=== PATIENT | female | born 1980 ===

== ENCOUNTER 2017-08-31 01:30 | Emergency (ER) | payer MEDICAID ==
[2017-08-31 01:37] VITALS: BMI 23.4
[2017-08-31 01:41] VITALS: TEMP 98.2
--- NOTE | 2017-08-31 01:52 | ED PDOC ---
Arrival/HPI - General Chief Complaint: Dizziness/Lightheaded Time Seen by Provider: 08/31/17 01:31 Historian: Patient, EMS - History of Present Illness Narrative History of Present Illness (Text): 08/31/17 01:48 Kim Arias is a 37 year old female who presents to the Emergency department complaining of dizziness. Patient states she woke up tonight with dizziness, described as room-spinning, with associated nausea and generalized weakness. Patient notes dizziness is worsened with movement. Patient denies any fever, chills, chest pain, shortness of breath, vomiting, diarrhea, urinary symptoms, back pain, neck pain, headache, or any other complaints. Symptom Onset: Gradual Symptom Course: Unchanged Activities at Onset: Light Context: Home Past Medical History - Provider Review Nursing Documentation Reviewed: Yes - Psychiatric Hx Substance Use: No - Surgical History Hx Section: Yes - Anesthesia Hx Anesthesia: No Family/Social History - Physician Review Nursing Documentation Reviewed: Yes Family/Social History: Unknown Family HX Smoking Status: Never Smoked Hx Alcohol Use: No Hx Substance Use: No Allergies/Home Meds Allergies/Adverse Reactions: Allergies No Known Allergies Allergy (Unverified 08/31/17 01:39) Review of Systems - Physician Review All systems were reviewed & negative as marked: Yes - Review of Systems Constitutional: Other (+weakness). absent: Fevers Eyes: Normal ENT: Normal Respiratory: Normal. absent: SOB, Cough Cardiovascular: Normal. absent: Chest Pain Gastrointestinal: Nausea. absent: Abdominal Pain, Diarrhea, Vomiting Genitourinary Female: Normal. absent: Dysuria, Frequency, Hematuria, Urine Output Changes Musculoskeletal: Normal. absent: Back Pain, Neck Pain Skin: Normal. absent: Rash Neurological: Dizziness. absent: Headache Endocrine: Normal Hemo/Lymphatic: Normal Psychiatric: Normal Physical Exam Vital Signs Reviewed: Yes Vital Signs Temp Pulse Resp BP Pulse Ox 08/31/17 03:52 73 17 128/73 100 08/31/17 01:40 98.2 F 64 16 116/67 96 Temperature: Afebrile Blood Pressure: Normal Pulse: Regular Respiratory Rate: Normal Appearance: Positive for: Well-Appearing, Non-Toxic, Comfortable Pain Distress: None Mental Status: Positive for: Alert and Oriented X 3 - Systems Exam Head: Present: Atraumatic, Normocephalic Pupils: Present: PERRL Extroacular Muscles: Present: EOMI Conjunctiva: Present: Normal Ears: Present: Normal, NORMAL TM, Normal Canal. No: Erythema, TM Bulging, Fluid , TM Perf Mouth: Present: Moist Mucous Membranes Pharnyx: Present: Normal. No: ERYTHEMA, EXUDATE, TONSILS ENLARGED, Peritonsilar Swelling, Uvular Deviation, Muffled/Hoarse Voice, Strider, Soft Palate/Uvular Edema Nose (External): Present: Atraumatic Nose (Internal): Present: Normal Inspection Neck: Present: Normal Range of Motion. No: Meningeal Signs, MIDLINE TENDERNESS , Paraspinal Tenderness Respiratory/Chest: Present: Clear to Auscultation, Good Air Exchange. No: Respiratory Distress, Accessory Muscle Use Cardiovascular: Present: Regular Rate and Rhythm, Normal S1, S2. No: Murmurs Abdomen: Present: Normal Bowel Sounds. No: Tenderness, Distention, Peritoneal Signs Back: Present: Normal Inspection. No: CVA Tenderness, Midline Tenderness, Paraspinal Tenderness Upper Extremity: Present: Normal Inspection, Normal ROM, NORMAL PULSES, Neurovascularly Intact. No: Cyanosis, Edema Lower Extremity: Present: Normal Inspection, NORMAL PULSES, Normal ROM, Neurovascularly Intact. No: Edema Neurological: Present: GCS=15, CN II-XII Intact, Speech Normal, Motor Func Grossly Intact, Normal Sensory Function, Normal Cerebellar Funct, Memory Normal Skin: Present: Warm, Dry, Normal Color. No: Rashes Psychiatric: Present: Alert, Oriented x 3, Normal Insight, Normal Concentration Medical Decision Making ED Course and Treatment: 08/31/17 01:48 Impression: 37 year old female complaining of dizziness, nausea, and generalized weakness. Plan: -- CT Head w/o contrast -- EKG -- Labs, cardiac enzymes -- IV fluids -- Antivert -- Reassess and disposition Progress Notes: 08/31/17 01:45 reviewed EKG, NSR at 65 bpm. Non-specific ST/T wave changes. 08/31/17 03:21 CT Head shows: Brain: No intracranial hemorrhage. No mass. No definite edema. Ventricles: No hydrocephalus. Bones/joints: No acute fracture. Soft tissues: Unremarkable. Sinuses: No acute sinusitis. Mastoid air cells: No mastoid effusion. Orbits: Unremarkable as visualized. IMPRESSION: 1. No definite acute intracranial abnormality. 08/31/17 05:18 On re-evaluation, patient feels better and is in no acute distress. I have discussed the results and plan with the patient, who expresses understanding. Patient in agreement with plan to be discharged home. Patient is stable for discharge. Patient was instructed to follow up with physician or return if symptoms worsen or new concerning symptoms arise. - Lab Interpretations Lab Results: 08/31/17 02:00 08/31/17 02:00 Lab Results 08/31/17 02:00: WBC 8.9, RBC 4.17, Hgb 12.2, Hct 36.6, MCV 87.8, MCH 29.3, MCHC 33.3, RDW 13.2, Plt Count 232, MPV 9.5 08/31/17 02:00: Sodium 140, Potassium 3.2 L, Chloride 105, Carbon Dioxide 25, Anion Gap 13, BUN 11, Creatinine 0.7, Est GFR ( Amer) > 60, Est GFR (Non- Af Amer) > 60, Random Glucose 149 H, Calcium 9.1, Total Bilirubin 0.3, AST 21, ALT 21, Alkaline Phosphatase 49, Lactate Dehydrogenase 328 L, Total Creatine Kinase 126, Troponin I < 0.01, Total Protein 7.0, Albumin 3.7, Globulin 3.3, Albumin/Globulin Ratio 1.1 I have reviewed the lab results: Yes - RAD Interpretation Radiology Orders: 08/31/17 01:52 HEAD W/O CONTRAST [CT] Stat Slab Puller: Radiologist - EKG Interpretation Interpreted by ED Physician: Yes Type: 12 lead EKG - Medication Orders Current Medication Orders: Discontinued Medications Sodium Chloride (Sodium Chloride 0.9%) 1,000 mls @ 999 mls/hr IV .Q1H1M STA Stop: 08/31/17 02:55 Last Admin: 08/31/17 02:15 Dose: 999 mls/hr eMAR Start Stop Document 08/31/17 02:15 IT (Rec: 08/31/17 02:15 IT [id number]) Intravenous Solution Start Date 08/31/17 Start Time 02:15 End Date 08/31/17 End time 03:15 Total Infusion Time 60 Meclizine HCl (Antivert) 25 mg PO STAT STA Stop: 08/31/17 01:57 Last Admin: 08/31/17 02:15 Dose: 25 mg Ondansetron HCl (Zofran Inj) 4 mg IVP ONCE ONE Stop: 08/31/17 02:35 Last Admin: 08/31/17 02:35 Dose: 4 mg IVP Administration Document 08/31/17 02:35 IT (Rec: 08/31/17 02:53 IT [id number]) Charges for Administration # of IVP Administrations 1 Potassium Chloride (K-Dur 20 Meq Er Tab) 20 meq PO STAT STA Stop: 08/31/17 03:40 Last Admin: 08/31/17 03:52 Dose: 20 meq - Scribe Statement The provider has reviewed the documentation as recorded by the Scribe Krissy Baltazar All medical record entries made by the Scribe were at my direction and personally dictated by me. I have reviewed the chart and agree that the record accurately reflects my personal performance of the history, physical exam, medical decision making, and the department course for this patient. I have also personally directed, reviewed, and agree with the discharge instructions and disposition. Disposition/Present on Arrival - Present on Arrival Any Indicators Present on Arrival: No History of DVT/PE: No History of Uncontrolled Diabetes: No Urinary Catheter: No History of Decub. Ulcer: No History Surgical Site Infection Following: None - Disposition Have Diagnosis and Disposition been Completed?: Yes Diagnosis: Labyrinthitis Disposition: HOME/ ROUTINE Disposition Time: 05:25 Patient Plan: Discharge Patient Problems: Current Active Problems Problem Status Onset Labyrinthitis Acute Condition: STABLE Discharge Instructions (ExitCare): Labyrinthitis, Vertigo (a Type of Dizziness ) (DC) Additional Instructions: Take meds as prescribed/follow up with your doctor/neurologist this week/any recurrent worsening symptoms return to the emergency room Prescriptions: Meclizine [Meclizine*] 25 mg PO Q6 PRN #30 tab PRN Reason: Dizziness Referrals: Claus Jiménez MD [Primary Care Provider] - Follow up with primary Forms: [employer] (Urdu)
[2017-08-31] MEDS ORDERED: Sodium Chloride 0.9% 1,000 ML IV STA (01:55)
[2017-08-31 02:10] LABS: HEMOGLOBIN 12.2 g/dL (12.0-16.0); MEAN CELL VOLUME 87.8 fl (80.0-105.0); MEAN CORPUSCULAR HEMOGLOBIN 29.3 pg (25.0-35.0); MEAN CORPUSCULAR HGB CONC 33.3 g/dl (31.0-37.0); MEAN PLATELET VOLUME 9.5 fl (7.0-11.0); RBC 4.17 10^6/uL (3.5-6.1); RED CELL DISTRIBUTION WIDTH 13.2 % (11.5-14.5); WHITE BLOOD COUNT 8.9 10^3/ul (4.5-11.0)
[2017-08-31 02:18] LABS: ALB/GLOB RATIO 1.1 (1.1-1.8); ALBUMIN 3.7 g/dL (3.0-4.8); ALT/SGPT 21 U/L (7-56); AST/SGOT 21 U/L (14-36); BLOOD UREA NITROGEN 11 mg/dL (7-21); CALCIUM 9.1 mg/dL (8.4-10.5); GFR AFRICAN-AMERICAN > 60; GFR NON-AFRICAN AMERICAN > 60
[2017-08-31 02:29] LABS: TROPONIN I < 0.01 ng/mL
--- NOTE | 2017-08-31 03:12 | CT ---
EXAM: CT Head Without Intravenous Contrast CLINICAL HISTORY: 37 years old, female; Signs and symptoms; Dizziness; Additional info: Dizzy TECHNIQUE: Axial computed tomography images of the head/brain without intravenous contrast. All CT scans at this facility use one or more dose reduction techniques, viz.: automated exposure control; ma/kV adjustment per patient size (including targeted exams where dose is matched to indication; i.e. head); or iterative reconstruction technique. Coronal and sagittal reformatted images were created and reviewed. COMPARISON: No relevant prior studies available. FINDINGS: Brain: No intracranial hemorrhage. No mass. No definite edema. Ventricles: No hydrocephalus. Bones/joints: No acute fracture. Soft tissues: Unremarkable. Sinuses: No acute sinusitis. Mastoid air cells: No mastoid effusion. Orbits: Unremarkable as visualized. IMPRESSION: 1. No definite acute intracranial abnormality.
[2017-08-31] MEDS ORDERED: Potassium Chloride 20 mEq ER Tab PO STA (03:39)
[2017-08-31 03:53] VITALS: RESP 17; O2SAT 100
[2017-08-31 05:46] VITALS: BP 127/81; PULSE 76
--- NOTE | 2017-08-31 09:35 | CARD ---
APPROVED REPORT EKG Measurement Heart [id number] <Conclusion> Normal sinus rhythm Possible Left atrial enlargement Borderline ECG
== END 2017-08-31 05:52 | disposition home or self-care (01) ==
LOC: ED 01:30
DX: H83.09 Labyrinthitis, unspecified ear (principal)
CPT/HCPCS: 70450; 80053; 82550; 83615; 84484; 85027; 93005; 96361; 96374; 99285; J2405; J7040